=== PATIENT | male | born 2005 | race Two or more races ===

== ENCOUNTER 2025-03-20 10:59 | Emergency (ER) | payer OTHER ==
[~2025-03-20] VITALS: Ht 182.9 cm; Wt 102.0 kg
[2025-03-20] MEDS ORDERED: EXCETAB32 PO (11:47)
[2025-03-20] MEDS ORDERED: ONDA-282 PO (11:47)
[2025-03-20] MEDS ORDERED: [UNRECOGNIZED DRUG - CODE] PO (11:47)
[2025-03-20] MEDS: IBUPROFEN 600 MG TAB PO ONE (12:28)
[2025-03-20 14:21] VITALS: BP 119/69; TEMP 97.9; O2SAT 98
== END 2025-03-20 14:35 | disposition home or self-care (01) ==
LOC: EDBD 10:59 → M ED 10:59
DX: R50.9 Fever, unspecified (principal)